=== PATIENT | male | born 1995 | race Caucasian/White ===

== ENCOUNTER 2016-09-15 18:59 | Outpatient (CLI) | payer SELFPAY | END 2016-09-15 19:00 | disposition home or self-care (01) | DX: R22.32 Localized swelling, mass and lump, left upper limb (principal); M79.89 Other specified soft tissue disorders ==

== ENCOUNTER 2017-05-03 14:28 | Outpatient (CLI) | payer MEDICAID ==
[2017-05-03 14:00] LABS: BASOPHILS % (AUTO) 0.7 %; EOSINOPHILS # (AUTO) 0.1 10^3/uL (0.0-0.7); EOSINOPHILS % (AUTO) 1.4 %; HCT - HEMATOCRIT 44.3 % (42.0-52.0); HGB - HEMOGLOBIN 15.5 g/dL (14.0-18.0); LYMPHOCYTES # (AUTO) 1.6 10^3/uL (1.5-3.5); LYMPHOCYTES % (AUTO) 33.5 %; MEAN CORPUSCULAR HEMOGLOBIN 31.7 pg (27.0-31.0); MEAN CORPUSCULAR HGB CONC 35.1 g/dL (32.0-36.0); MEAN CORPUSCULAR VOLUME 90.5 fL (80.0-94.0); MEAN PLATELET VOLUME 8.2 fL (7.4-11.4); MONOCYTES # (AUTO) 0.5 10^3/uL (0.0-1.0); MONOCYTES % (AUTO) 10.4 %; NEUTROPHILS # (AUTO) 2.6 10^3/uL (1.5-6.6); NUCLEATED RED BLOOD CELLS AUTO 0.1 /100WBC; RED BLOOD COUNT 4.89 10^6/uL (4.70-6.10); RED CELL DISTRIBUTION WIDTH 12.7 % (12.0-15.0); UNCORRECTED WHITE BLOOD COUNT 4.8 x10^3/uL; WHITE BLOOD COUNT 4.8 x10^3/uL (4.8-10.8)
[2017-05-03 15:42] LABS: ALBUMIN/GLOBULIN RATIO 1.5 (1.0-2.2); BILIRUBIN,TOTAL 0.7 mg/dL (0.2-1.0); CALCIUM 9.2 mg/dL (8.5-10.3); POTASSIUM 3.9 mmol/L (3.5-5.0); TOTAL PROTEIN 7.6 g/dL (6.7-8.2)
== END 2017-05-03 14:29 | disposition home or self-care (01) ==
LOC: LAB.N 14:28
PROVIDERS: ATTEND Physician Assistant Medical
DX: R59.9 Enlarged lymph nodes, unspecified (principal); R94.5 Abnormal results of liver function studies
CPT/HCPCS: 36415; 80053; 85025

== ENCOUNTER 2017-09-20 14:45 | Outpatient (CLI) | payer MEDICAID ==
[2017-09-20 18:54] LABS: BASOPHILS # (AUTO) 0.1 10^3/uL (0.0-0.1); BASOPHILS % (AUTO) 1.2 %; EOSINOPHILS % (AUTO) 0.6 %; HGB - HEMOGLOBIN 14.8 g/dL (14.0-18.0); LYMPHOCYTES # (AUTO) 1.7 10^3/uL (1.5-3.5); LYMPHOCYTES % (AUTO) 34.3 %; MEAN CORPUSCULAR HEMOGLOBIN 30.8 pg (27.0-31.0); MEAN CORPUSCULAR HGB CONC 33.9 g/dL (32.0-36.0); MEAN CORPUSCULAR VOLUME 90.7 fL (80.0-94.0); MEAN PLATELET VOLUME 8.5 fL (7.4-11.4); MONOCYTES # (AUTO) 0.7 10^3/uL (0.0-1.0); MONOCYTES % (AUTO) 13.2 %; NEUTROPHILS # (AUTO) 2.6 10^3/uL (1.5-6.6); NEUTROPHILS % (AUTO) 50.7 %; PLT - PLATELET COUNT 277 10^3/uL (130-450); WHITE BLOOD COUNT 5.1 x10^3/uL (4.8-10.8)
[2017-09-20 19:18] LABS: ALBUMIN 4.7 g/dL (3.2-5.5); ALBUMIN/GLOBULIN RATIO 1.7 (1.0-2.2); ALKALINE PHOSPHATASE 57 IU/L (42-121); ALT ALANINE AMINOTRANSFERASE 18 IU/L (10-60); AST ASPARTATE AMINOTRANSFERASE 28 IU/L (10-42); BILIRUBIN,TOTAL 0.7 mg/dL (0.2-1.0); BUN - BLOOD UREA NITROGEN 12 mg/dL (6-20); CALCIUM 9.3 mg/dL (8.5-10.3); CARBON DIOXIDE - CO2 27 mmol/L (21-32); CHLORIDE 104 mmol/L (101-111); GFR - MDRD 93 (>89); GLUCOSE 104 mg/dL (70-100); SODIUM 137 mmol/L (135-145); TOTAL PROTEIN 7.4 g/dL (6.7-8.2)
[2017-09-20 19:22] LABS: HB2 TOTAL 16.7 g/dL; HEMOGLOBIN A1C 0.58 g/dL; HEMOGLOBIN A1C % 5.3 % (4.6-6.2)
== END 2017-09-20 14:46 | disposition home or self-care (01) ==
LOC: LAB.N 14:45
PROVIDERS: ATTEND Physician Assistant Medical
DX: R53.83 Other fatigue (principal); N52.9 Male erectile dysfunction, unspecified
CPT/HCPCS: 36415; 80053; 83036; 84403; 84443; 85025

== ENCOUNTER 2017-10-31 08:00 | Outpatient (CLI) | payer MEDICAID ==
[2017-10-31 14:09] LABS: FOLLICLE STIMULATING HORMONE 1.04 mIU/mL
[2017-10-31 14:10] LABS: LUTEINIZING HORMONE 5.53 mIU/mL
== END 2017-10-31 08:01 | disposition home or self-care (01) ==
LOC: LAB.N 08:00
PROVIDERS: ATTEND Nurse Practitioner
DX: E29.1 Testicular hypofunction (principal)
CPT/HCPCS: 36415; 81599; 83001; 83002; 84402; 84403

== ENCOUNTER 2017-11-01 08:00 | Outpatient (CLI) | payer MEDICAID | END 2017-11-01 08:01 | disposition home or self-care (01) | LOC: LAB.N 08:00 | PROVIDERS: ATTEND Nurse Practitioner | DX: E29.1 Testicular hypofunction (principal) | CPT/HCPCS: 36415; 83002; 84403 ==